=== PATIENT | male | born 1950 | race Caucasian/White ===

== ENCOUNTER 2017-11-22 13:21 | Emergency (ER) | payer OTHER ==
[2017-11-22 13:58] VITALS: TEMP 98; O2SAT 99
--- NOTE | 2017-11-22 14:22 | C.PDOC ---
History Of Present Illness 67 yo male, presnets iwth right hand pain x 2 weeks. has remote hx of trauma in 2004, but no new trauma. no fevers, no cough. no erythmea, drainage Time Seen by Provider: 11/22/17 14:07 Chief Complaint (Nursing): Upper Extremity Problem/Injury Past Medical History Reviewed: Historical Data, Nursing Documentation, Vital Signs Vital Signs: Last Vital Signs Temp 98 F 11/22/17 15:41 Pulse 61 11/22/17 15:41 Resp 20 11/22/17 15:41 BP 118/71 11/22/17 15:41 Pulse Ox 99 11/22/17 15:45 Family History: States: Unknown Family Hx - Social History Hx Alcohol Use: No Hx Substance Use: No - Immunization History Hx Tetanus Toxoid Vaccination: No Hx Influenza Vaccination: No Hx Pneumococcal Vaccination: No Review Of Systems Except As Marked, All Systems Reviewed And Found Negative. Musculoskeletal: Positive for: Hand Pain (right) Physical Exam - Physical Exam Appears: Well, No Acute Distress Skin: Normal Color, Warm, Dry Eye(s): bilateral: Normal Inspection, PERRL, EOMI Nose: Normal Throat: Normal Neck: Normal Cardiovascular: Rhythm Regular Respiratory: Normal Breath Sounds Gastrointestinal/Abdominal: Normal Exam Back: Normal Inspection Extremity: Normal ROM, Tenderness (right hadn, worse to 3rd and 4th digit, ), Deformity (heberden nodes), No Swelling ED Course And Treatment O2 Sat by Pulse Oximetry: 99 Medical Decision Making Medical Decision Making: hand pain - no recent trauma -s suect arthritis no e/o of infection, no erytema , warth to joints. imaging pending pt reassesed pain improved adivse outpt fu and return precautions Disposition - Disposition Disposition: HOME/ ROUTINE Disposition Time: 15:42 Condition: STABLE Additional Instructions: fu with your doctor, specialist return to er with worsening symptoms or concerns Prescriptions: Naproxen [Naprosyn] 500 mg PO BID PRN #14 tablet PRN Reason: Pain, Mild (1-3) Instructions: Hand Pain Forms: Playground Sessions (Samoan) - Clinical Impression Clinical Impression: Hand pain
[2017-11-22 15:43] VITALS: BP 118/71; PULSE 61; RESP 20
--- NOTE | 2017-11-22 15:43 | RAD ---
PROCEDURE: Right Hand Radiographs. HISTORY: Pain COMPARISON: None. FINDINGS: BONES: Bone alignment is normal. There is periarticular bone demineralization. There is no acute fracture or bone destruction. There is an old deformity in the head of the 4th metacarpal. JOINTS: There is moderate degenerative osteoarthrosis in the 1st RESIDENTIAL joint. The remaining joint spaces are preserved. SOFT TISSUES: Normal. OTHER FINDINGS: None. IMPRESSION: No acute fracture or dislocation. 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
== END 2017-11-22 15:53 | disposition home or self-care (01) ==
LOC: C.ER 13:21
DX: M79.641 Pain in right hand (principal)
CPT/HCPCS: 73130; 96372; 99285; J1885